=== PATIENT | female | born 1955 | race Caucasian/White ===

== ENCOUNTER 2017-10-18 17:39 | Emergency (ER) | payer MEDICARE, OTHER ==
[2017-10-18] MEDS ORDERED: HYDROcod/ACETAM 5/325 MG TABLET PO STA (19:04)
--- NOTE | 2017-10-18 19:10 | ED Physician Documentation ---
PD HPI HEENT - Stated complaint Stated Complaint: GLF/FACIAL BLEEDING - Chief complaint Chief Complaint: Heent - History obtained from History obtained from: Patient, Family - History of Present Illness Timing - onset: Today (Trip and fall and hit a wood box with R face with lac. R face pain. No other head injury.) Review of Systems Constitutional: denies: Fever, Chills Ears: denies: Loss of hearing, Ear pain Nose: denies: Rhinorrhea / runny nose, Congestion Throat: denies: Dental pain / toothache, Sore throat PD PAST MEDICAL HISTORY - Past Medical History Past Medical History: Yes Cardiovascular: Hypertension, High cholesterol - Past Surgical History Past Surgical History: Yes - Present Medications Home Medications: Ambulatory Orders Medication Instructions Recorded Confirmed Atenolol 10/18/17 Cetirizine HCl 10/18/17 HYDROcod/ACETAM 5/325 [[place] 5/325] 1 - 2 ea PO Q6H PRN #10 tablet 10/18/17 Sertraline HCl 10/18/17 Simvastatin 10/18/17 amLODIPine [Norvasc] 10/18/17 hydroCHLOROthiazide 10/18/17 [Hydrochlorothiazide] - Allergies Allergies/Adverse Reactions: Allergies Allergy/AdvReac Type Severity Reaction Status Date / Time No Known Drug Allergies Allergy Verified 10/18/17 17:46 - Social History Does the pt smoke?: No Smoking Status: Never smoker Does the pt drink ETOH?: No Does the pt have substance abuse?: No - Immunizations Immunizations are current?: Yes PD ED PE NORMAL - Vitals Vital signs reviewed: Yes - General General: Alert and oriented X 3, No acute distress - HEENT HEENT: PERRL, EOMI, Other (Lac above R lip 1.5 cm shallow. TTP R maxilla. Dried R epistaxis. Teeth 6-8 with small chips. Some punctures R chin.) - Neck Neck: Supple, no meningeal sign, No bony TTP - Neuro Neuro: Alert and oriented X 3, Normal speech - Psych Psych: Normal mood, Normal affect Results - Vitals Vitals: Vital Signs - 24 hr 10/18/17 10/18/17 17:44 19:40 Temperature 36.7 C 37.6 C H Heart Rate 67 57 L Respiratory 18 18 Rate Blood Pressure 184/93 H 143/69 H O2 Saturation 95 97 Oxygen O2 Source Room air - Rads (name of study) CT facial bones Radiology: EMP read contemporaneously (no frx) Procedures - Laceration (location) Face above R lip/ Length in cm: 1.5 Wound type: Linear, Superficial Wound Preparation: Irrigated copiously NS Skin layer closure: Dermabond Other: Tetanus UTD Complexity: Simple PD MEDICAL DECISION MAKING - ED course ED course: She presents after a mechanical ground-level fall with facial injuries, mostly abrasions but one laceration that was closed. She also has chips in 3 teeth. She was advised on wound care and advised to follow-up with the dentist. Departure - Departure Disposition: Home, Self Care Clinical Impression: Facial abrasion Qualifiers: Encounter type: initial encounter Qualified Code(s): S00.81XA - Abrasion of other part of head, initial encounter Facial contusion Qualifiers: Encounter type: initial encounter Qualified Code(s): S00.83XA - Contusion of other part of head, initial encounter Chipped tooth Qualifiers: Encounter type: initial encounter Fracture type: closed Qualified Code(s): S02.5XXA - Fracture of tooth (traumatic), initial encounter for closed fracture Facial laceration Qualifiers: Encounter type: initial encounter Qualified Code(s): S01.81XA - Laceration without foreign body of other part of head, initial encounter Condition: Good Record reviewed to determine appropriate education?: Yes Instructions: ED Wound Care Prescriptions: HYDROcod/ACETAM 5/325 [[place] 5/325] 1 - 2 ea PO Q6H PRN #10 tablet PRN Reason: Pain Comments: Soap and water to her wounds daily, follow-up with your dentist to discuss definitive treatment of the 3 chipped teeth. Return if worse. Your blood pressure was elevated today on check into the emergency department. This does not mean that you have hypertension, it is a common phenomenon to come to the emergency department and have elevated blood pressure. I recommend that you see your primary care physician within the week to have it rechecked when you are feeling better.
[2017-10-18 19:41] VITALS: BP 143/69
--- NOTE | 2017-10-18 19:47 | CT Report ---
EXAM: CT MAXILLOFACIAL WITHOUT CONTRAST EXAM DATE: 10/18/2017 07:30 PM. CLINICAL HISTORY: Facial injury, nagi R maxilla. COMPARISONS: None. TECHNIQUE: Thin-section axial images were acquired of the face without contrast. Post-processing: Cor onal and sagittal reformats. Other: None. In accordance with CT protocol optimization, one or more of the following dose reduction techniques w ere utilized for this exam: automated exposure control, adjustment of mA and/or KV based on patient s ize, or use of iterative reconstructive technique. FINDINGS: Soft Tissue: No mass or fluid collection.The infratemporal fossa and parapharyngeal spaces are unrema rkable. Orbits: Symmetric and unremarkable. Bones: No fracture or bone lesion. Temporomandibular Joints: The temporomandibular joints are symmetric and normally located. Sinuses: Normal. No mucosal thickening or fluid levels. Other: Mild superficial soft tissue swelling over right axilla and no, with tiny bubbles of subcutane ous emphysema noted on axial images 81 through 91. IMPRESSION: Soft tissue injury. [facility] Referring Provider Line: [phone] SITE ID: [id number]
[2017-10-18] MEDS ORDERED: HYDROcod/ACET 5/325 Prepack 6 PO STA (19:59)
[2017-10-18] MEDS ORDERED: OXYMETAZOLINE NASAL SPRAY NAS STA (19:59)
== END 2017-10-18 20:28 | disposition home or self-care (01) ==
LOC: ED 17:39
DX: S00.81XA Abrasion of other part of head, initial encounter (principal); S01.511A Laceration without foreign body of lip, initial encounter; W01.198A Fall on same level from slipping, tripping and stumbling with subsequent striking against other object, initial encounter; Y92.59 Other trade areas as the place of occurrence of the external cause; K08.89 Other specified disorders of teeth and supporting structures; I10 Essential (primary) hypertension; E78.00 Pure hypercholesterolemia, unspecified
CPT/HCPCS: 12011; 70486; 99283; A9270

== ENCOUNTER 2018-10-17 15:44 | Outpatient (CLI) | payer MEDICARE, OTHER ==
--- NOTE | 2018-10-17 20:59 | MRI Report ---
Reason: LOW BACK PAIN Procedure Date: 10/17/2018 Accession Number: [id number] / [id number] Procedure: MRI - Lumbar Spine W/O CPT Code: FULL RESULT: EXAM: MRI LUMBAR SPINE WITHOUT CONTRAST EXAM DATE: 10/17/2018 04:42 PM. CLINICAL HISTORY: 63-year-old female. LOW BACK PAIN. COMPARISON: MR lumbar spine 04/01/2011 TECHNIQUE: Multiplanar, multisequence T1-weighted and fluid-sensitive sequences of the lumbar spine from T12 to S1 without contrast. Other: None. FINDINGS: Spinal Canal: The conus terminates at L1. The conus medullaris and cauda equina are unremarkable. Alignment: Interval progression in now grade 2 anterolisthesis L4 on L5 measuring 8 mm, previously 6 mm. Bone Marrow: Five hdv-khj-hdkphna lumbar vertebral bodies are assumed. No gross fractures or bone lesions. No bone marrow replacement. Modic type I degenerative endplate changes at the L3-L4 level with endplate edema. Disk Levels/Facets: T12-L1: Mild to moderate diffuse disk bulge, increased since the prior study. Mild central canal narrowing, increased. No foraminal narrowing. L1-L2: Unremarkable. L2-L3: Unremarkable. L3-L4: Mild disk height loss and desiccation. Moderate bilateral facet arthropathy, progressed. Mild anterior dural compression. No significant central canal narrowing. Moderate bilateral foraminal narrowing, increased. L4-L5: Uncovered disk with superimposed moderate diffuse disk bulge. Status post prior laminectomy. Moderate to severe bilateral facet arthropathy. No residual central canal narrowing. Mild to moderate left foraminal narrowing and mild right foraminal narrowing. The foraminal narrowing has slightly progressed. L5-S1: Moderate bilateral facet arthropathy. No significant central canal or foraminal narrowing. No interval progression. Musculature: Normal. No edema or fatty atrophy. Other: The partially visualized retroperitoneum is unremarkable. IMPRESSION: 1. Moderate multilevel degenerative spondylosis, as detailed above and summarized below. No evidence of acute fracture or malalignment. No cord signal abnormality. Compared to the prior study from 04/01/2011, there has been interval progression of central canal/foraminal narrowing at some levels, as detailed. 2. Modic type I degenerative endplate changes at the L3-L4 level with endplate edema. Modic type I changes may represent a source of pain. 3. Interval progression in now grade 2 anterolisthesis L4 on L5 measuring 8 mm, previously 6 mm. 4. T12-L1: Mild central canal narrowing, increased. No foraminal narrowing. 5. L3-L4: No significant central canal narrowing. Moderate bilateral foraminal narrowing, increased. Recommend correlation for bilateral L3 radicular symptoms. 6. L4-L5: No residual central canal narrowing. Mild to moderate left foraminal narrowing and mild right foraminal narrowing. The foraminal narrowing has slightly progressed. Comment: The following findings are so common in adults without low back pain that while we report their presence, they must be interpreted with caution and in the context of the clinical situation. (Reference Judyvik et al, Spine 2001) Prevalence of findings in patients without low back pain: Disk degeneration (any evidence): 92% Disk desiccation/T2 signal loss: 83% Disk height loss: 56% Disk bulge: 64% Disk protrusion: 32% Annular tear/high intensity zone: 38% [facility]
== END 2018-10-17 15:45 | disposition home or self-care (01) ==
LOC: DI 15:44
PROVIDERS: ATTEND Family Medicine
DX: M47.816 Spondylosis without myelopathy or radiculopathy, lumbar region (principal); M48.061 Spinal stenosis, lumbar region without neurogenic claudication
CPT/HCPCS: 72148

== ENCOUNTER 2018-11-19 15:23 | Emergency (ER) | payer MEDICARE, OTHER ==
--- NOTE | 2018-11-19 16:20 | ED Physician Documentation ---
History of Present Illness - Stated complaint Stated Complaint: SENT BY - Chief complaint Chief Complaint: General - History obtained from History obtained from: Patient, Family - History of Present Illness Timing: How many weeks ago (1) - Additonal information Additional information: 63-year-old previously well female diagnosed with prediabetes and placed on metformin 3 years ago has developed acute polyuria and polydipsia she has gone in to see her doctor for blood work today and was called back by the clinic and told to go to the emergency department for a blood sugar over 400. The patient states that she has lost 30 pounds and that she has been up to the bathroom multiple times during the night and drinking lots and lots of fluid. Review of Systems Constitutional: reports: Weight Loss. denies: Fever, Chills, Myalgias Eyes: denies: Decreased vision Ears: denies: Ear pain Nose: denies: Rhinorrhea / runny nose, Congestion Throat: denies: Sore throat Cardiac: denies: Chest pain / pressure, Palpitations Respiratory: denies: Dyspnea, Cough GI: reports: Nausea. denies: Abdominal Pain, Vomiting : reports: Frequency. denies: Dysuria Skin: denies: Rash, Lesions Musculoskeletal: denies: Neck pain, Back pain, Extremity pain Neurologic: denies: Generalized weakness, Focal weakness, Numbness Endocrine: reports: Polydypsia, Polyuria PD PAST MEDICAL HISTORY - Past Medical History Cardiovascular: Hypertension, High cholesterol - Past Surgical History Past Surgical History: Yes - Present Medications Home Medications: Ambulatory Orders Medication Instructions Recorded Confirmed Atenolol 10/18/17 Cetirizine HCl 10/18/17 HYDROcod/ACETAM 5/325 [[place] 5/325] 1 - 2 ea PO Q6H PRN #10 tablet 10/18/17 Sertraline HCl 10/18/17 Simvastatin 10/18/17 amLODIPine [Norvasc] 10/18/17 hydroCHLOROthiazide 10/18/17 [Hydrochlorothiazide] metFORMIN [Glucophage] 1,000 mg PO BIDWM #40 tablet 11/19/18 - Allergies Allergies/Adverse Reactions: Allergies Allergy/AdvReac Type Severity Reaction Status Date / Time No Known Drug Allergies Allergy Verified 11/19/18 15:29 - Social History Does the pt smoke?: No Smoking Status: Never smoker Does the pt drink ETOH?: No Does the pt have substance abuse?: No - Immunizations Immunizations are current?: Yes PD ED PE NORMAL - Vitals Vital signs reviewed: Yes (hypertensive ) - General General: Alert and oriented X 3, No acute distress, Well developed/nourished - HEENT HEENT: Atraumatic, PERRL, EOMI, Ears normal, Moist mucous membranes, Pharynx benign, Dentition benign - Neck Neck: Supple, no meningeal sign, No bony TTP - Cardiac Cardiac: RRR, No murmur - Respiratory Respiratory: No respiratory distress, Clear bilaterally - Abdomen Abdomen: Soft, Non tender - Back Back: No CVA TTP, No spinal TTP - Derm Derm: Normal color, Warm and dry, No rash - Extremities Extremities: No deformity, No edema - Neuro Neuro: Alert and oriented X 3, 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, No motor deficit, No sensory deficit, Normal speech Eye Opening: Spontaneous Motor: Obeys Commands Verbal: Oriented GCS Score: 15 - Psych Psych: Normal mood, Normal affect Results - Vitals Vitals: Vital Signs - 24 hr 11/19/18 11/19/18 11/19/18 15:29 16:46 17:51 Temperature 36.9 C Heart Rate 82 69 Respiratory 16 18 18 Rate Blood Pressure 197/95 H 153/83 H O2 Saturation 97 97 11/19/18 11/19/18 19:09 21:01 Temperature Heart Rate 87 78 Respiratory 18 18 Rate Blood Pressure 145/78 H 148/79 H O2 Saturation 99 99 Oxygen O2 Source Room air - Labs Labs: Laboratory Tests 11/19/18 11/19/18 11/19/18 15:50 15:50 15:50 WBC 10.0 RBC 5.02 Hgb 14.4 Hct 43.5 MCV 86.6 MCH 28.7 MCHC 33.1 RDW 13.2 Plt Count 221 MPV 11.4 H Neut # (Auto) 6.9 H Lymph # (Auto) 2.4 [place] # (Auto) 0.6 Eos # (Auto) 0.0 Baso # (Auto) 0.1 Absolute Nucleated RBC 0.01 Nucleated RBC % 0.1 VBG pH VBG pCO2 VBG pO2 VBG HCO3 VBG Total CO2 VBG O2 Saturation VBG Base Excess Sodium 128 L Potassium 4.3 Chloride 92 L Carbon Dioxide 24 Anion Gap 12.0 BUN 22 H Creatinine 1.1 H Estimated GFR (MDRD) 50 L Glucose 623 H* POC Whole Bld Glucose Calcium 9.5 Total Bilirubin 0.9 AST 45 H ALT 44 Alkaline Phosphatase 126 H Troponin I < 0.04 Total Protein 8.2 Albumin 4.3 Globulin 3.9 Albumin/Globulin Ratio 1.1 Lipase 70 H Urine Color Urine Clarity Urine pH Ur Specific [place] Urine Protein Urine Glucose (UA) Urine Ketones Urine Occult Blood Urine Nitrite Urine Bilirubin Urine Urobilinogen Ur Leukocyte Esterase Ur Microscopic Review Urine Culture Comments Serum Ketones NEGATIVE 11/19/18 11/19/18 11/19/18 15:50 16:25 17:25 WBC RBC Hgb Hct MCV MCH MCHC RDW Plt Count MPV Neut # (Auto) Lymph # (Auto) [place] # (Auto) Eos # (Auto) Baso # (Auto) Absolute Nucleated RBC Nucleated RBC % VBG pH 7.420 H VBG pCO2 37.9 L VBG pO2 58.1 H VBG HCO3 24.0 VBG Total CO2 25.2 VBG O2 Saturation 91.1 H VBG Base Excess -0.1 Sodium Potassium Chloride Carbon Dioxide Anion Gap BUN Creatinine Estimated GFR (MDRD) Glucose POC Whole Bld Glucose 482 H Calcium Total Bilirubin AST ALT Alkaline Phosphatase Troponin I Total Protein Albumin Globulin Albumin/Globulin Ratio Lipase Urine Color YELLOW Urine Clarity CLEAR Urine pH 5.5 Ur Specific [place] <=1.005 Urine Protein NEGATIVE Urine Glucose (UA) >=1000 H Urine Ketones NEGATIVE Urine Occult Blood NEGATIVE Urine Nitrite NEGATIVE Urine Bilirubin NEGATIVE Urine Urobilinogen 0.2 (NORMAL) Ur Leukocyte Esterase NEGATIVE Ur Microscopic Review NOT INDICATED Urine Culture Comments NOT INDICATED Serum Ketones 11/19/18 11/19/18 11/19/18 19:06 20:04 20:49 WBC RBC Hgb Hct MCV MCH MCHC RDW Plt Count MPV Neut # (Auto) Lymph # (Auto) [place] # (Auto) Eos # (Auto) Baso # (Auto) Absolute Nucleated RBC Nucleated RBC % VBG pH VBG pCO2 VBG pO2 VBG HCO3 VBG Total CO2 VBG O2 Saturation VBG Base Excess Sodium Potassium Chloride Carbon Dioxide Anion Gap BUN Creatinine Estimated GFR (MDRD) Glucose POC Whole Bld Glucose 315 H 301 H 229 H Calcium Total Bilirubin AST ALT Alkaline Phosphatase Troponin I Total Protein Albumin Globulin Albumin/Globulin Ratio Lipase Urine Color Urine Clarity Urine pH Ur Specific [place] Urine Protein Urine Glucose (UA) Urine Ketones Urine Occult Blood Urine Nitrite Urine Bilirubin Urine Urobilinogen Ur Leukocyte Esterase Ur Microscopic Review Urine Culture Comments Serum Ketones Procedures - IVC sono (time) 1550 Bedside IVC sono: IVC measures (cm) (0.93), IVC collapsed c insp (cm) (complete), Dehydration (est 2 liter deficit) PD MEDICAL DECISION MAKING - ED course Complexity details: reviewed old records, reviewed results, re-evaluated patient, considered differential, d/w patient, d/w family ED course: 63-year-old female with type 2 diabetes has her diabetes [id number] with a blood sugar over 600. She is dehydrated on interrogation the inferior vena cava and estimated at 2 L deficit. She is administered saline and initially a 10 unit bolus of insulin. And then she is placed onto a drip at 6 units/h. After 5 1/2 hours in the ED the blood sugar is down to 219 and the patient is discharged to home with her dose of metformin increased to 1000mg bid and she has phone follow-up with her provider in the AM. Departure - Departure Disposition: 01 Home, Self Care Clinical Impression: Dehydration Type 2 diabetes mellitus Qualifiers: Diabetes mellitus jail insulin use: without jail use Diabetes mellitus complication status: with hyperglycemia Qualified Code(s): E11.65 - Type 2 diabetes mellitus with hyperglycemia Condition: Stable Instructions: ED Hyperglycemia Diabetic, ED Dehydration Follow-Up: FRANKIE ZUNIGA [Primary Care Provider] - Prescriptions: metFORMIN [Glucophage] 1,000 mg PO BIDWM #40 tablet Discharge Date/Time: 11/19/18 21:01
[2018-11-19 16:22] LABS: VBG PCO2 37.9 mmHg (41-51); VBG PH 7.42 (7.31-7.41); VBG PO2 58.1 mmHg (25-47)
[2018-11-19 16:23] LABS: BASOPHILS # (AUTO) 0.1 10^3/uL (0.0-0.1); BASOPHILS % (AUTO) 1.4 %; EOSINOPHILS % (AUTO) 0.4 %; HGB - HEMOGLOBIN 14.4 g/dL (12.0-16.0); LYMPHOCYTES # (AUTO) 2.4 10^3/uL (1.5-3.5); LYMPHOCYTES % (AUTO) 23.8 %; MEAN CORPUSCULAR HEMOGLOBIN 28.7 pg (27.0-31.0); MEAN CORPUSCULAR HGB CONC 33.1 g/dL (32.0-36.0); MEAN CORPUSCULAR VOLUME 86.6 fL (81.0-99.0); MEAN PLATELET VOLUME 11.4 fL (7.9-10.8); MONOCYTES # (AUTO) 0.6 10^3/uL (0.0-1.0); MONOCYTES % (AUTO) 5.8 %; NEUTROPHILS # (AUTO) 6.9 10^3/uL (1.5-6.6); NEUTROPHILS % (AUTO) 68.6 %; PLT - PLATELET COUNT 221 10^3/uL (130-450); RED BLOOD COUNT 5.02 10^6/uL (4.20-5.40); RED CELL DISTRIBUTION WIDTH 13.2 % (12.0-15.0); VBG BASE EXCESS -0.1 mmol/L (-2 - +2); VBG TOTAL CO2 25.2 mmol/L (24-29)
[2018-11-19 16:32] LABS: KETONES, SERUM (ACETEST) NEGATIVE (NEGATIVE)
[2018-11-19] MEDS: INSULIN REGULAR HUMAN 100 UNIT/1 ML 10 ML MDV IVP STA ×2 (16:33→21:00)
[2018-11-19] MEDS: SODIUM CHLORIDE 0.9% 1,000 ML IV ONE ×2 (16:33→18:36)
[2018-11-19 16:37] LABS: ALBUMIN 4.3 g/dL (3.2-5.5); ALBUMIN/GLOBULIN RATIO 1.1 (1.0-2.2); ALKALINE PHOSPHATASE 126 IU/L (42-121); ALT ALANINE AMINOTRANSFERASE 44 IU/L (10-60); AST ASPARTATE AMINOTRANSFERASE 45 IU/L (10-42); BILIRUBIN,TOTAL 0.9 mg/dL (0.2-1.0); BUN - BLOOD UREA NITROGEN 22 mg/dL (6-20); CALCIUM 9.5 mg/dL (8.5-10.3); CARBON DIOXIDE - CO2 24 mmol/L (21-32); CHLORIDE 92 mmol/L (101-111); CREATININE 1.1 mg/dL (0.4-1.0); GFR - MDRD 50 (>89); LIPASE 70 U/L (22-51); SODIUM 128 mmol/L (135-145); TOTAL PROTEIN 8.2 g/dL (6.7-8.2)
[2018-11-19 16:38] LABS: GLUCOSE 623 mg/dL (70-100)
[2018-11-19 16:40] LABS: BILIRUBIN,URINE NEGATIVE (NEGATIVE); GLUCOSE, URINE (UA) >=1000 mg/dL (NEGATIVE); KETONES,URINE (UA) NEGATIVE (NEGATIVE); LEUKOCYTE ESTERASE, URINE NEGATIVE (NEGATIVE); NITRITE,URINE NEGATIVE (NEGATIVE); OCCULT BLOOD,URINE NEGATIVE (NEGATIVE); PH,URINE 5.5 PH (5.0-7.5); PROTEIN,URINE NEGATIVE (NEGATIVE); UROBILINOGEN,URINE 0.2 (NORMAL) E.U./dL (NORMAL)
[2018-11-19 16:43] LABS: CLARITY,URINE CLEAR (CLEAR)
[2018-11-19] MEDS: INSULIN REGULAR HUMAN 100 UNIT in SODIUM CHLORIDE 0.9% 100ML 99 ML IV STA (18:05)
--- NOTE | 2018-11-19 20:59 | ED Physician Documentation ---
ED Addendum - Addendum Addendum: 11/19/18 20:59 Patient was signed out with plan of continuing IV fluids, as well as insulin drip in hopes of reaching blood glucose levels in lower to mid 200s. Otherwise, assuming that was reached, patient can be discharged with prescriptions and paperwork already completed. Upon multiple rechecks, eventually patient's blood glucose declined appropriately. Patient also reports that she is asymptomatic. Feel that she is appropriate for discharge per plan.
[2018-11-19 21:01] VITALS: BP 148/79
== END 2018-11-19 21:01 | disposition home or self-care (01) ==
LOC: ED 15:23
DX: E86.0 Dehydration (principal); E11.65 Type 2 diabetes mellitus with hyperglycemia; Z79.84 Long term (current) use of oral hypoglycemic drugs
CPT/HCPCS: 36415; 80053; 81001; 81003; 82009; 82803; 83690; 84484; 85025; 87086; 96361; 96365; 96366; 99284

== ENCOUNTER 2018-12-03 12:47 | Outpatient (CLI) | payer MEDICARE, OTHER ==
--- NOTE | 2018-12-03 14:01 | DEXA Report ---
Reason: ASYMPTOMATIC MENOPAUSAL STATE Procedure Date: 12/03/2018 Accession Number: [id number] / [id number] Procedure: DEX - Dexa Spine and/or Hip CPT Code: FULL RESULT: EXAM: Dexa Spine and/or Hip DATE: 12/03/2018 1:26 PM CLINICAL HISTORY: ASYMPTOMATIC MENOPAUSAL STATE TECHNIQUE: Dual energy x-ray absorptiometry (DXA) was performed on a [employer] System. Regions measured are the AP Spine, femoral neck, and if needed forearm. COMPARISON: None. In accordance with the International Society for Clinical Densitometry (ISCD) guidelines, data from previous exams may be reanalyzed using current recommendations and techniques. This is done to allow a more accurate basis for comparison with the current study. FINDINGS: The data for the lumbar spine is as follows: BMD (g/cm/cm) T-SCORE Z-SCORE REGION L1 1.224 0.8 1.2 L2 1.244 0.4 0.8 L3 1.386 1.6 2.0 L4 1.414 1.8 2.2 TOTAL 1.331 1.3 1.7 NOTE: All evaluable vertebrae are used for classification The data for the hip is as follows: BMD (g/cm/cm) T-SCORE Z-SCORE REGION Neck 0.929 -0.8 -0.1 TOTAL 1.038 0.2 0.6 NOTE: The femoral neck or total proximal femur, whichever is lowest, is used for classification. IMPRESSION: THE WHO CLASSIFICATION BASED ON THE INTERNATIONAL REFERENCE STANDARD IS NORMAL. THE FRACTURE RISK IS NOT INCREASED. RECOMMENDATION: Patients with diagnosis of osteoporosis or osteopenia should have regular bone mineral density assessment. For those eligible for Medicare, routine testing is allowed once every 2 years. Testing frequency can be increased for patients who have rapidly progressing disease or for those who are receiving medical therapy to restore bone mass. COMMENT: World Health Organization (WHO) definitions for osteoporosis and osteopenia: NORMAL BMD: T-score at -1.0 or higher, fracture risk is low OSTEOPENIA BMD: T-score between -1.0 and -2.5, fracture risk is increased. OSTEOPOROSIS BMD: T-score at -2.5 or lower, fracture risk is high. National Osteoporosis Foundation recommends: 1. Obtain adequate dietary calcium (at least 1200 mg per day) and vitamin D (400-800 international units per day). 2. Participate, as appropriate, in regular weightbearing and muscle-strengthening exercise. 3. Avoid tobacco use and reduce alcohol and caffeine intake. 4. For more detailed information see the website at www.NOF.org.
== END 2018-12-03 12:48 | disposition home or self-care (01) ==
LOC: DI 12:47
PROVIDERS: ATTEND Family Medicine
DX: Z78.0 Asymptomatic menopausal state (principal)
CPT/HCPCS: 77080

== ENCOUNTER 2020-04-13 10:44 | Outpatient (CLI) | payer MEDICARE, OTHER ==
--- NOTE | 2020-04-21 12:08 | Mammography Report ---
BILATERAL DIGITAL SCREENING MAMMOGRAM 3D/2D: 04/13/2020 CLINICAL: Routine screening. Family history of breast cancer. No prior exams were available for comparison. There are scattered fibroglandular elements in both br easts. There is a focal asymmetry in the left breast at 2 o'clock posterior depth. There also is a round focal asymmetry in the left breast at 4 o'clock anterior depth. No other significant masses, calcifications, or other findings are seen in either breast. IMPRESSION: INCOMPLETE: NEEDS ADDITIONAL IMAGING EVALUATION The focal asymmetry in the left breast at 2 o'clock posterior depth is indeterminate. Additional vie ws with possible ultrasound are recommended. The round focal asymmetry in the left breast at 4 o'clock anterior depth is indeterminate. Additiona l views with possible ultrasound are recommended. This exam was interpreted at Station ID: [id number]. NOTE: For mammograms, a report in lay terms will be sent to the patient. Approximately 15% of breast malignancies will not be visualized mammographically. In the management of a palpable breast mass, a negative mammogram must not discourage biopsy of a clinically suspicious lesion. Electronically Signed By: Marline Carroll M.D. lk/:04/20/2020 16:33:29 ACR BI-RADS Category 0: Incomplete [id number] PARENCHYMAL PATTERN: (A) - The breast(s) demonstrate(s) scattered fibroglandular densities. BI-RADS CATEGORY: (0) - 0 Mammo and [place] [id number] Immediate follow-up LATERALITY: (B)
== END 2020-04-13 10:45 | disposition home or self-care (01) ==
LOC: DI 10:44
DX: Z12.31 Encounter for screening mammogram for malignant neoplasm of breast (principal); R92.8 Other abnormal and inconclusive findings on diagnostic imaging of breast; Z80.3 Family history of malignant neoplasm of breast
CPT/HCPCS: 77063; 77067

== ENCOUNTER 2022-05-31 14:08 | Outpatient (CLI) | payer MEDICARE, OTHER ==
--- NOTE | 2022-05-31 17:16 | DEXA Report ---
PROCEDURE: Dexa Spine and/or Hip INDICATIONS: POST MENOPAUSAL TECHNIQUE: Dual energy x-ray absorptiometry (DXA) was performed on a [facility]. Regions measur ed are the AP Spine, femoral neck, and if needed forearm. COMPARISON: None. FINDINGS: Lumbar Spine: Bone Mineral Density 1.41 g/cm/cm,T score 1.9, previously 1.3, some sclerosis may make this measur ement inaccurate Left Hip: Bone Mineral Density 1.03 g/cm/cm,T score 0.1, previously 0.2 Left Femoral Neck: Bone Mineral Density 0.85 g/cm/cm, T score -1.4, previously -0.8 (T score greater or equal to -1.0: NORMAL) (T score from -1.1 to -2.4: OSTEOPENIA) (T score less than or equal to -2.5 to: OSTEOPOROSIS) Impression: New osteopenia of the left femoral neck compared to prior. Overall lumbar spine and total hip mineral density are within normal limits. Patients with diagnosis of osteoporosis or osteopenia should have regular bone mineral density assess ment. For those eligible for Medicare, routine testing is allowed once every 2 years. Testing frequ ency can be increased for patients who have rapidly progressing disease or for those who are receivin g medical therapy to restore bone mass. Reviewed by: Nimesh Fernandez MD on 05/31/2022 5:15 PM PDT Approved by: Nimesh Fernandez MD on 05/31/2022 5:15 PM PDT Station ID: [id number]
== END 2022-05-31 14:09 | disposition home or self-care (01) ==
LOC: DI 14:08
PROVIDERS: ATTEND Student in an Organized Health Care Education/Training Program
DX: M85.88 Other specified disorders of bone density and structure, other site (principal); Z78.0 Asymptomatic menopausal state

== ENCOUNTER 2023-01-08 11:58 | Emergency (ER) | payer MEDICARE, OTHER ==
[2023-01-08 12:29] LABS: BASOPHILS # (AUTO) 0.1 10^3/uL (0.0-0.1); BASOPHILS % (AUTO) 0.5 %; EOSINOPHILS % (AUTO) 0.3 %; HGB - HEMOGLOBIN 15.8 g/dL (12.0-16.0); LYMPHOCYTES # (AUTO) 1.4 10^3/uL (1.5-3.5); LYMPHOCYTES % (AUTO) 13.1 %; MEAN CORPUSCULAR HEMOGLOBIN 29.2 pg (27.0-31.0); MEAN CORPUSCULAR HGB CONC 32.9 g/dL (32.0-36.0); MEAN CORPUSCULAR VOLUME 88.7 fL (81.0-99.0); MONOCYTES # (AUTO) 0.5 10^3/uL (0.0-1.0); MONOCYTES % (AUTO) 4.4 %; NEUTROPHILS # (AUTO) 8.5 10^3/uL (1.5-6.6); NEUTROPHILS % (AUTO) 81.5 %; PLT - PLATELET COUNT 253 10^3/uL (130-450); RED BLOOD COUNT 5.41 10^6/uL (4.20-5.40); RED CELL DISTRIBUTION WIDTH 13.2 % (12.0-15.0); WHITE BLOOD COUNT 10.4 x10^3/uL (4.8-10.8)
[2023-01-08 12:41] LABS: ALBUMIN 4.5 g/dL (3.2-5.5); ALBUMIN/GLOBULIN RATIO 1.1 (1.0-2.2); CALCIUM 9.4 mg/dL (8.5-10.3); CREATININE 0.8 mg/dL (0.4-1.0); POTASSIUM 3.7 mmol/L (3.5-5.0); TOTAL PROTEIN 8.5 g/dL (6.7-8.2)
[2023-01-08] MEDS ORDERED: MORPHINE 2 MG/ML CARPUJECT IVP STA ×2 (13:01→15:47)
[2023-01-08] MEDS ORDERED: ONDANSETRON 4 MG/2 ML VIAL IVP STA ×3 (13:01→17:50)
[2023-01-08] MEDS ORDERED: SODIUM CHLORIDE 0.9% 1,000 ML IV STA (13:01)
--- NOTE | 2023-01-08 13:14 | ED Physician Documentation ---
History of Present Illness - Stated complaint Stated Complaint: LT SIDE PX/NAUSEA - Chief complaint Chief Complaint: Back Pain - History obtained from History obtained from: Patient, Family - History of Present Illness Pain level max: 8 Pain level now: 6 - Additonal information Additional information: Patient is a 67-year-old female who presents to the emergency department with left flank pain/left abdominal pain/left back pain ongoing for the past several days. She does have a history of "cyst removal" from her lumbar spine several years ago. She states that the pain is worse with moving. She has also had nausea and vomiting. No diarrhea or constipation. She is diabetic but has not checked her blood sugars. No fevers. No chills. She states that she had open heart surgery as a child. She does not know which medications she is currently taking at home. No loss of bowel or bladder control. Denies any IV drug use. Has not taken anything for pain because she states she cannot keep any medication down currently. No numbness or tingling. No neurological deficits. Review of Systems Constitutional: denies: Fever, Chills Ears: denies: Ear pain Nose: denies: Rhinorrhea / runny nose, Congestion Throat: denies: Sore throat Cardiac: denies: Chest pain / pressure Respiratory: denies: Cough GI: reports: Nausea, Vomiting. denies: Constipation, Diarrhea, Hematemesis, Bloody / black stool : denies: Dysuria, Frequency, Hesitancy Skin: denies: Rash Musculoskeletal: denies: Neck pain Neurologic: denies: Focal weakness, Numbness, Headache PD PAST MEDICAL HISTORY - Past Medical History Cardiovascular: Hypertension, High cholesterol - Past Surgical History Past Surgical History: Yes - Present Medications Home Medications: Ambulatory Orders Medication Instructions Recorded Confirmed Cetirizine HCl 10/18/17 HYDROcod/ACETAM 5/325 [Kirkland 5/325] 1 - 2 ea PO Q6H PRN #10 tablet 10/18/17 Sertraline HCl 10/18/17 Simvastatin 10/18/17 amLODIPine [Norvasc] 10/18/17 atenoloL [Atenolol] 10/18/17 hydroCHLOROthiazide 10/18/17 [Hydrochlorothiazide] metFORMIN [Glucophage] 1,000 mg PO BIDWM #40 tablet 11/19/18 HYDROcod/ACETAM 5/325 [Kirkland 5/325] 1 - 2 ea PO Q6H PRN #20 tablet 01/08/23 Ondansetron Odt [Zofran] 4 mg TL Q6H PRN #10 tablet 01/08/23 Promethazine [Phenergan] 25 mg PO Q6H PRN #10 tab 01/08/23 methocarbamoL [Robaxin] 500 mg PO Q6H PRN #20 tablet 01/08/23 - Allergies Allergies/Adverse Reactions: Allergies Allergy/AdvReac Type Severity Reaction Status Date / Time No Known Drug Allergies Allergy Verified 01/08/23 12:10 - Social History Does the pt smoke?: No Smoking Status: Never smoker Does the pt drink ETOH?: No Does the pt have substance abuse?: No - Immunizations Immunizations are current?: Yes PD ED PE NORMAL - Vitals Vital signs reviewed: Yes - General General: Alert and oriented X 3, No acute distress - HEENT HEENT: PERRL, Moist mucous membranes - Neck Neck: Supple, no meningeal sign - Cardiac Cardiac: RRR, Strong equal pulses - Respiratory Respiratory: No respiratory distress, Clear bilaterally - Abdomen Abdomen: Soft, Non tender, Non distended - Back Back: No CVA TTP, No spinal TTP (No midline tenderness to palpation or percussion. No step-off or deformity.) - Derm Derm: Warm and dry, No rash - Extremities Extremities: No edema, No calf tenderness / cord - Neuro Neuro: Alert and oriented X 3, No motor deficit, No sensory deficit, Other (Normal bilateral lower extremity patellar and ankle jerk reflexes. Normal great toe extension bilaterally. no saddle anesthesia) - Psych Psych: Normal mood, Normal affect Results - Vitals Vitals: Vital Signs - 24 hr 01/08/23 01/08/23 01/08/23 12:05 13:09 15:00 Temperature 36.5 C Heart Rate 70 89 72 Respiratory 16 17 18 Rate Blood Pressure 171/81 H 153/83 H 161/75 H O2 Saturation 98 99 94 01/08/23 01/08/23 16:00 18:05 Temperature Heart Rate 66 74 Respiratory 16 16 Rate Blood Pressure 150/75 H 170/72 H O2 Saturation 92 95 Oxygen O2 Source Room air - Labs Labs: Laboratory Tests 01/08/23 01/08/23 01/08/23 12:23 12:23 16:52 WBC 10.4 RBC 5.41 H Hgb 15.8 Hct 48.0 H MCV 88.7 MCH 29.2 MCHC 32.9 RDW 13.2 Plt Count 253 MPV 11.0 H Neut # (Auto) 8.5 H Lymph # (Auto) 1.4 L Leake # (Auto) 0.5 Eos # (Auto) 0.0 Baso # (Auto) 0.1 Absolute Nucleated RBC 0.00 Nucleated RBC % 0.0 Sodium 142 Potassium 3.7 Chloride 106 Carbon Dioxide 26 Anion Gap 10.0 BUN 15 Creatinine 0.8 Estimated GFR (MDRD) 71 L Glucose 154 H Calcium 9.4 Total Bilirubin 1.0 AST 29 ALT 30 Alkaline Phosphatase 63 Total Protein 8.5 H Albumin 4.5 Globulin 4.0 Albumin/Globulin Ratio 1.1 Lipase 43 Urine Color YELLOW Urine Clarity HAZY Urine pH 7.0 Ur Specific Stewart 1.010 Urine Protein 30 H Urine Glucose (UA) NEGATIVE Urine Ketones TRACE Urine Occult Blood NEGATIVE Urine Nitrite NEGATIVE Urine Bilirubin NEGATIVE Urine Urobilinogen 0.2 (NORMAL) Ur Leukocyte Esterase NEGATIVE Urine RBC 0-5 Urine WBC 0-3 Ur Squamous Epith Cells FEW Squamous Urine Bacteria Few Ur Microscopic Review INDICATED Urine Culture Comments NOT INDICATED - Rads (name of study) CT abd/pelvis Relevant Findings:: Final report received, See rad report PD Medical Decision Making - ED course Complexity details: reviewed results, re-evaluated patient, considered differential (No cauda equina, no spinal epidural abscess, no fracture, no aortic dissection or evidence of aneursym rupture), d/w patient, d/w family ED course: 67-year-old female with left-sided abdominal/flank/back pain. Nausea and vomiting as well. CT scan performed and does not show any significant acute abnormalities. No acute findings on CBC, chemistry or urinalysis that would explain her symptoms. Patient feels better after pain medications and muscle relaxants. Ambulating well. Appears to be mostly muscular spasm. Tolerating p.o. without difficulty after IV antiemetics. Likely muscular spasm causing her pain and the pain is likely causing the nausea and vomiting. We will place on pain medication, nausea medication and muscle relaxants for home. We will have her follow-up closely with her doctor for further care. Patient counseled regarding signs and symptoms for which I believe and urgent re-evaluation would be necessary. Patient with good understanding of and agreement to plan and is comfortable going home at this time This document was made in part using voice recognition software. While efforts are made to proofread this document, sound alike and grammatical errors may occur. Departure - Departure Disposition: 01 Home, Self Care Clinical Impression: Back spasm Back pain Qualifiers: Back pain location: low back pain Chronicity: acute Back pain laterality: left Sciatica presence: without sciatica Qualified Code(s): M54.50 - Low back pain, unspecified Vomiting Qualifiers: Vomiting type: unspecified Nausea presence: with nausea Qualified Code(s): R11.2 - Nausea with vomiting, unspecified Condition: Good Instructions: ED Neck Back Pain General, ED Nausea Vomiting Follow-Up: RIKKI LY DO [Primary Care Provider] - Within 1 week Prescriptions: HYDROcod/ACETAM 5/325 [Kirkland 5/325] 1 - 2 ea PO Q6H PRN #20 tablet PRN Reason: Pain Promethazine [Phenergan] 25 mg PO Q6H PRN #10 tab PRN Reason: Nausea / Vomiting methocarbamoL [Robaxin] 500 mg PO Q6H PRN #20 tablet PRN Reason: muscle spasm Ondansetron Odt [Zofran] 4 mg TL Q6H PRN #10 tablet PRN Reason: Nausea / Vomiting Comments: Your prescriptions were sent to [facility] in [place]. Please follow-up with your doctor for further care. Please return if you worsen. This should improve over the next few days. Your CT scan reading as below. I am prescribing a short course of narcotic pain medication for you. These are potentially dangerous and addictive medications that should be used carefully. These medications may constipate you. Take an asrs-gfi-dibfffo stool softener (docusate) twice daily with plenty of water while taking these medications. If you go 24 hours without a bowel movement, take lbpz-lqv-nmtdiea miralax, per package instructions. Do not drink or drive while taking these medications. If you received narcotic or sedating medications while in the emergency department, do not drive for 24 hours. Store this medication in a safe, secure place and out of reach of children. It is a violation of federal law to give or sell this medication to another person or to use in a manner other than prescribed. The ED will not refill narcotic prescriptions, including prescriptions lost or stolen. To dispose of unwanted medications: 1. [facility] at [address] in [place] has a medication drop box. They accept prescription medications (in pill form) Sunday through Sunday 9:00 a.m. to 5:00 p.m. 2. The [facility] accepts prescription medications (in pill form only) for disposal year round. Call for more information. 3. Contact the [facility] for the next [facility] sponsored prescription drug collection event. , [phone], or [phone]; PROCEDURE: ABDOMEN/PELVIS W INDICATIONS: LLQ abd pain, vomiting CONTRAST: 100ml Omnipaque 300 TECHNIQUE: After the administration of IV contrast, 5 mm thick sections acquired from the diaphragms to the symphysis. 5 mm thick coronal and sagittal reformats were acquired. For radiation dose reduction, the following was used: automated exposure control, adjustment of mA and/or kV according to patient size. COMPARISON: None FINDINGS: Image quality: Good Lower chest: Basal scarring/atelectasis. Suspected annular calcifications of the heart. Solid organs: Possible hepatic steatosis. The gallbladder is distended, consider sonographic correlation if there are right upper quadrant symptoms. No pathologic dilation of the biliary tree or pancreatic duct. No splenomegaly. No adrenal nodules. No hydronephrosis. Vessels and lymph nodes: Main portal vein is patent. No abdominal aortic aneurysm or pathologic adenopathy by size criteria. Bowel and peritoneum: No evidence of bowel obstruction, abscess or pathologic ascites. Slightly tortuous course of the sigmoid colon, partially flipped into the upper midline abdomen, without current evidence of mesenteric congestion to suggest volvulus. The appendix appears normal diameter. Body wall: Unremarkable Pelvis: Reproductive organs appear physiologic but not well evaluated on CT. Consider ultrasound if there is concern. Bladder is underdistended. Bones: Degenerative changes. No acute or suspicious osseous finding. Posterior decompression changes. Sternotomy wires. IMPRESSION: No acute bowel obstruction. No high-grade bowel inflammation. No pathologic ascites or abscess. Normal diameter appendix. Other findings as above, likely incidental/nonacute. Discharge Date/Time: 01/08/23 18:06
[2023-01-08] MEDS ORDERED: iohexoL-300 100 ML VIAL ONE (13:29)
[2023-01-08] MEDS ORDERED: iohexoL-300 100 ML VIAL IVP ONE (15:08)
--- NOTE | 2023-01-08 15:13 | CT Report ---
PROCEDURE: ABDOMEN/PELVIS W INDICATIONS: LLQ abd pain, vomiting CONTRAST: 100ml Omnipaque 300 TECHNIQUE: After the administration of IV contrast, 5 mm thick sections acquired from the diaphragms to the symp hysis. 5 mm thick coronal and sagittal reformats were acquired. For radiation dose reduction, the f ollowing was used: automated exposure control, adjustment of mA and/or kV according to patient size. COMPARISON: None FINDINGS: Image quality: Good Lower chest: Basal scarring/atelectasis. Suspected annular calcifications of the heart. Solid organs: Possible hepatic steatosis. The gallbladder is distended, consider sonographic correlat ion if there are right upper quadrant symptoms. No pathologic dilation of the biliary tree or pancrea tic duct. No splenomegaly. No adrenal nodules. No hydronephrosis. Vessels and lymph nodes: Main portal vein is patent. No abdominal aortic aneurysm or pathologic adeno no by size criteria. Bowel and peritoneum: No evidence of bowel obstruction, abscess or pathologic ascites. Slightly tortu ous course of the sigmoid colon, partially flipped into the upper midline abdomen, without current ev idence of mesenteric congestion to suggest volvulus. The appendix appears normal diameter. Body wall: Unremarkable Pelvis: Reproductive organs appear physiologic but not well evaluated on CT. Consider ultrasound if t here is concern. Bladder is underdistended. Bones: Degenerative changes. No acute or suspicious osseous finding. Posterior decompression changes. Sternotomy wires. IMPRESSION: No acute bowel obstruction. No high-grade bowel inflammation. No pathologic ascites or abscess. Sandra l diameter appendix. Other findings as above, likely incidental/nonacute. Reviewed by: Nimesh Fernandez MD on 01/08/2023 3:12 PM PDT Approved by: Nimesh Fernandez MD on 01/08/2023 3:12 PM PDT Station ID: [id number]
[2023-01-08] MEDS ORDERED: KETOROLAC 30 MG/ML VIAL IVP STA (15:47)
[2023-01-08] MEDS ORDERED: diazePAM INJ 5 MG/ML SYRINGE IVP STA (16:38)
[2023-01-08 17:02] LABS: BILIRUBIN,URINE NEGATIVE (NEGATIVE); GLUCOSE, URINE (UA) NEGATIVE (NEGATIVE); KETONES,URINE (UA) TRACE mg/dL (NEGATIVE); LEUKOCYTE ESTERASE, URINE NEGATIVE (NEGATIVE); NITRITE,URINE NEGATIVE (NEGATIVE); OCCULT BLOOD,URINE NEGATIVE (NEGATIVE); PROTEIN,URINE 30 mg/dL (NEGATIVE); UROBILINOGEN,URINE 0.2 (NORMAL) E.U./dL (NORMAL)
[2023-01-08 17:07] LABS: CLARITY,URINE HAZY (CLEAR)
[2023-01-08 17:22] LABS: BACTERIA,URINE Few /HPF (None Seen); RBC,URINE 0-5 /HPF (0-5); SQUAMOUS EPITHELIAL CELL,UR FEW Squamous (<= Few); WBC,URINE 0-3 /HPF (0-5)
[2023-01-08 18:08] VITALS: BP 170/72
== END 2023-01-08 18:06 | disposition home or self-care (01) ==
LOC: ED 11:58
DX: M62.830 Muscle spasm of back (principal); R11.2 Nausea with vomiting, unspecified
CPT/HCPCS: 36415; 74177; 80053; 81001; 83690; 85025; 96374; 96375; 96376; 99284; 99285; Q9967; 81003; 87086

== ENCOUNTER 2023-12-16 15:23 | Outpatient (CLI) | payer MEDICARE, OTHER ==
--- NOTE | 2023-12-18 00:02 | Ultrasound Report ---
PROCEDURE: Renal (Retroperitoneal) INDICATIONS: CKD TECHNIQUE: Real-time scanning was performed of the retroperitoneal organs, with image documentation. COMPARISON: None. FINDINGS: Kidneys: Kidneys are normal in size. Right kidney measures 10.7 cm long; left kidney measures 11.7 cm long. Right renal cortical thickness is 0.7 cm; left renal cortical thickness is 0.7 cm. No abram d masses, hydronephrosis, or nephrolithiasis. Possible distal ureteral dilation noted versus artifact Bladder: Pre-void bladder volume is 153 mL. Post-void residual is 28 mL. Pre-void images demonstra te no intraluminal masses or stones. On pre-void images, bilateral ureteral jets are noted with colo r Doppler interrogation. (Of note, ureteral jets may not be detectable in up to 25% of cases due to insufficient differences in specific gravity between ureteral and bladder urine). Miscellaneous: No free abdominal fluid. IMPRESSION: Possible distal left ureteral dilation without hydronephrosis probably reflects an artifact. Consider short-term interval follow-up versus follow-up CT Reviewed by: Gustabo West MD on 12/17/2023 11:01 PM SYLVIA Approved by: Gustabo West MD on 12/17/2023 11:01 PM SYLVIA Station ID: [id number]
== END 2023-12-16 15:24 | disposition home or self-care (01) ==
LOC: DI 15:23
PROVIDERS: ATTEND Internal Medicine Nephrology
DX: N18.32 Chronic kidney disease, stage 3b (principal)

== ENCOUNTER 2024-03-20 15:45 | Outpatient (CLI) | payer MEDICARE, OTHER ==
--- NOTE | 2024-03-21 15:25 | Ultrasound Report ---
PROCEDURE: Renal (Retroperitoneal) INDICATIONS: CKD TECHNIQUE: Real-time scanning was performed of the retroperitoneal organs, with image documentation. COMPARISON: None available at the time of dictation. FINDINGS: Kidneys: Kidneys are normal in size. Right kidney measures 11.6 cm long; left kidney measures 12.1 cm long. Right renal cortical thickness is 1.6 cm; left renal cortical thickness is 1.8 cm. 1.4 cm e chogenic focus which does not appear to show increased vascularity seen in the upper pole of the righ t kidney. Otherwise no solid masses, hydronephrosis, or nephrolithiasis. Renal parenchyma appears so mewhat heterogeneous Bladder: Suboptimal visualization secondary to prostatic hyperplasia. Pre-void bladder volume is 231 mL. Post-void residual is 68 mL. Pre-void images demonstrate no intraluminal masses or stones. On pre-void images, bilateral ureteral jets are noted with color Doppler interrogation. (Of note, urete ral jets may not be detectable in up to 25% of cases due to insufficient differences in specific grav ity between ureteral and bladder urine). Miscellaneous: No free abdominal fluid. IMPRESSION: 1. 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 If indicated, CT renal protocol may further evaluate. 2. Additional findings as noted above Reviewed by: Juan David Murillo MD on 03/21/2024 3:23 PM PDT Approved by: Juan David Murillo MD on 03/21/2024 3:23 PM PDT Station ID: [id number]
== END 2024-03-20 15:46 | disposition home or self-care (01) ==
LOC: DI 15:45
PROVIDERS: ATTEND Nurse Practitioner Family
DX: N18.9 Chronic kidney disease, unspecified (principal); R93.421 Abnormal radiologic findings on diagnostic imaging of right kidney